=== PATIENT | female | born 1955 | race Caucasian/White ===

== ENCOUNTER 2024-01-14 06:17 | Day surgery (SDC) | payer OTHER ==
[~2024-01-14] VITALS: Ht 157.5 cm; Wt 97.1 kg
[2024-01-14] VITALS (7 sets, daily range): BP systolic 106–131; BP diastolic 65–74; PULSE 68–75; RESP 17–24; O2SAT 95–96
[~2024-01-14 06:17] MED LIST: CARV3.1240 PO; CHOL100079 OR; CITA-77 PO; CLOP75TA70 PO; FOLI-119 PO; ISOS1TAB28 PO; LEVO100T8 PO; MELO15TA29 PO; METH2.5T PO; MULT-1018 PO; SIMV40TA18 PO
[2024-01-14] MEDS ORDERED: LIDOCAINE 2%HCL (LOCAL ANESTH.) INJ 20ML MDV ONE (07:27)
[2024-01-14] MEDS ORDERED: HEPARIN IN NS 1000Units/500mL 1,500 ML ONE (07:27)
[2024-01-14] MEDS ORDERED: IOHEXOL 350 MG/ML 100ML IJ ONE (07:27)
[2024-01-14] MEDS ORDERED: IODIXANOL 320MG/ML 100ML BTL IV ONE (07:27)
[2024-01-14] MEDS ORDERED: ANGIOMAX 250 MG VIAL IV ONE (08:14)
[2024-01-14] MEDS ORDERED: fentaNYL CITRATE 100 MCG/2 ML VL ONE (08:15)
[2024-01-14] MEDS ORDERED: VERAPAMIL 2.5MG/ML INJ 2ML VIAL IV ONE (08:15)
[2024-01-14] MEDS ORDERED: MIDAZOLAM HCL 2MG/2ML 2ml VIAL (1mg/ml) ONE (08:15)
[2024-01-14] MEDS ORDERED: HEPARIN SODIUM (PORCINE) 5000 UNITS/ML 1ML VIAL ONE (08:15)
[2024-01-14] MEDS ORDERED: SODIUM CHL 0.9% 0 ML ONE (08:16)
== END 2024-01-14 11:05 | disposition home or self-care (01) ==
LOC: CATH 06:17
PROVIDERS: ATTEND Internal Medicine
DX: I25.118 Atherosclerotic heart disease of native coronary artery with other forms of angina pectoris (principal); I50.9 Heart failure, unspecified; R07.9 Chest pain, unspecified
CPT/HCPCS: 93005; 93458; C1725; C1894; J1644; J2250; J3010; J7030; Q9967; 99152